=== PATIENT | female | born 1990 ===

== ENCOUNTER 2023-10-15 12:46 | Outpatient (CLI) | payer SELFPAY ==
--- NOTE | ~2023-10-15 | US_ITS ---
US pelvic complete w TV Ordering provider: Monique Mendez, [employer] History: . Abnormal level of hormones . Comparison: None. Technique: Transabdominal and endovaginal ultrasound of the pelvis (Doppler ultrasound interrogation techniques used as needed for this exam.) FINDINGS: CERVIX: Normal. Nabothian cysts are seen. UTERUS: Measures 8.5x 4.9x 6.2 cm in length which is within normal limits and is anteverted. No myom etrial masses. ENDOMETRIUM: Normal in thickness measuring 10.4 mm. CUL DE SAC: No free fluid. RIGHT OVARY: Normal in size measuring 3.9x 4.1x 3.6 cm. Normal echotexture. Doppler vascular flow pre sent. LEFT OVARY: Normal in size measuring 4.2x 3.4x 4.1 cm. Normal echotexture. Doppler vascular flow pres ent. ADNEXA: Normal. No mass. IMPRESSION: Nabothian cysts in the cervix Otherwise, normal pelvic ultrasound. Reviewed, dictated and finalized at location A.
== END 2023-10-15 12:47 ==
PROVIDERS: PCP Nurse Practitioner Family; Visit Provider Nurse Practitioner Family
DX: R89.1 Abnormal level of hormones in specimens from other organs, systems and tissues (principal); N88.8 Other specified noninflammatory disorders of cervix uteri
CPT/HCPCS: 76830; 76856